=== PATIENT | female | born 1995 | race Caucasian/White ===

== ENCOUNTER → 2018-04-16 | Day surgery (SDC) | payer OTHER ==
[2018-04-14 13:19] VITALS: BMI 30.4
[2018-04-16 13:04] VITALS: BP 121/73; PULSE 72; RESP 18; TEMP 98
--- NOTE | 2018-04-21 16:52 | CDI ---
Outpatient Documentation Clarification Form Date: 04/21/18 CDS/Benefits Analyst Name: Maine Forrest Phone: If any questions, call Марина Menjivar Draftsperson at [phone] Patient Name: Rosana Golden Admit Date: 04/16/18 Discharge Date: 04/16/18 ATTENTION: The [facility] Coding Staff appreciate your assistance in clarifying documentation. Please respond to the clarification below the line at the bottom and electronically sign. The [facility] Coding staff will review the response and follow-up if needed. Please note: Queries are made part of the Legal Health Record. If you have any questions, please contact the Draftsperson. Dear Dr. Carias, An admitting diagnosis and a final diagnosis is required for coding and billing purposes. Please provide the diagnosis(es). Thank you for your kind consideration. MTDD
--- NOTE | 2018-04-24 07:30 | OP ---
OPERATIVE REPORT DATE OF PROCEDURE: 04/16/2018 This is a patient who is a 22-year-old white female scheduled for a high-resolution impedance esophageal manometry as a part of evaluation of GERD and intermittent dysphagia to solids. PROCEDURE PERFORMED: High-resolution impedance manometry. PREOPERATIVE DIAGNOSIS: GERD/dysphagia. PROCEDURE DESCRIPTION: After informed consent was obtained from the patient, she was brought to the endoscopy unit. The procedure was performed by endoscopy nurse Ruth Castaneda. The esophageal manometry catheter was passed from the external ostium, was gently advanced into the distal esophagus and stomach and using high-resolution manometry was performed, using liquid as well as viscus solution. The study was interpreted using [place] classification. Following episode of results: 1. Lower esophageal data: Medium (IRP, integral residual pressure) 8 mmHg, mean residual pressure 1 mmHg, EGJ phenotype type 3. 2. Esophageal body: Mean DCI 798 mmHg-S-cm. 3. Peristaltic contractions 90%. 4. Distal latency within normal limits. 5. Impedance study: Complete liquid transit 80%. 6. Complete viscus transit 80%. INTERPRETATION: The above manometry study shows normal lower esophageal sphincter - integral residual pressures and a motility involving the esophageal body is within normal limits. There is no evidence of esophageal dysmotility. MMODL / IJN: [id number] /
== END | disposition home or self-care (01) ==
LOC: ORWHC2ENDO 12:45
PROVIDERS: ATTEND Internal Medicine Gastroenterology
DX: K21.9 Gastro-esophageal reflux disease without esophagitis (principal)
CPT/HCPCS: 91010

== ENCOUNTER 2024-05-14 09:33 | Emergency (ER) | payer OTHER ==
[2024-05-14 09:39] VITALS: TEMP 98.4
--- NOTE | 2024-05-14 09:58 | ED ---
Chest Pain HPI - General Chief Complaint: Chest Pain Stated Complaint: Chest Pain Time Seen by Provider: 05/14/24 09:40 Source: patient, RN notes reviewed Mode of arrival: ambulatory Limitations: no limitations - History of Present Illness Initial Comments: This is a 28-year-old female who presents to the emergency department for chest pain and dizziness. Patient states that for the last several weeks she has had intermittent bouts of dizziness with palpitations and chest discomfort. However, it usually only lasts a couple of seconds to a few minutes at most. Since 7 AM yesterday states that her symptoms have been essentially constant. She has associated nausea and feels clammy. Pain is described as more of a pressure sensation in her chest, but states that it is a mild 3 out of 10 at this time. She occasionally has pain radiating into her back. Reports possible associated shortness of breath. Denies any personal cardiac history. She does have a family history of premature CAD in aunts and uncles. MD Complaint: chest pain - Related Data Home Medications Medication Instructions Recorded Confirmed busPIRone HCL [Buspar] 7.5 mg PO BID 05/14/24 05/14/24 Allergies Allergy/AdvReac Type Severity Reaction Status Date / Time dextromethorphan HBr Allergy Rash/Hives Verified 05/14/24 11:11 [From NyQuil] doxylamine succinate Allergy Rash/Hives Verified 05/14/24 11:11 [From NyQuil] ibuprofen Allergy Rash/Hives Verified 05/14/24 11:11 [From DayQuil Sinus Pressure/Pain] pseudoephedrine Allergy Rash/Hives Verified 05/14/24 11:11 [From DayQuil Sinus Pressure/Pain] pseudoephedrine HCl Allergy Rash/Hives Verified 05/14/24 11:11 [From NyQuil] codeine AdvReac Nausea Verified 05/14/24 11:11 Review of Systems ROS Statement: Those systems with pertinent positive or pertinent negative responses have been documented in the HPI. ROS Other: All systems not noted in ROS Statement are negative. Past Medical History Past Medical History: Asthma, GERD/Reflux Additional Past Medical History / Comment(s): migraines, hiatal hernia, enlarged thyroid, polycystic ovariian syndrome History of Any Multi-Drug Resistant Organisms: None Reported Past Surgical History: Hernia Repair, Orthopedic Surgery Additional Past Surgical History / Comment(s): arthroscopic rt knee, EGD x 2, colonoscopy, oral surgery Past Anesthesia/Blood Transfusion Reactions: Motion Sickness Past Psychological History: Anxiety Smoking Status: Vaper Past Alcohol Use History: Rare Past Drug Use History: Marijuana - Past Family History Mother Family Medical History: No Reported History General Exam Limitations: no limitations General appearance: alert, in no apparent distress Head exam: Present: atraumatic, normocephalic, normal inspection Respiratory exam: Present: normal lung sounds bilaterally. Absent: respiratory distress, wheezes, rales, rhonchi, stridor Cardiovascular Exam: Present: regular rate, normal rhythm, normal heart sounds. Absent: systolic murmur, diastolic murmur, rubs, gallop, clicks Neurological exam: Present: alert, oriented X3, CN II-XII intact Psychiatric exam: Present: normal affect, normal mood Skin exam: Present: warm, dry, intact, normal color. Absent: rash Course Vital Signs 05/14/24 05/14/24 09:36 11:30 Temperature 98.4 F Pulse Rate 64 67 Respiratory 20 16 Rate Blood Pressure 126/77 120/74 O2 Sat by Pulse 99 98 Oximetry Chest Pain MDM - MDM This is a 28 year old female who presents to the emergency department for chest pain. Was pt. sent in by a medical professional or institution? @ -No Did you speak to anyone other than the patient for history? @ -No Did you review nursing and triage notes? @ -Yes, and I agree, it is accurate with regards to the patient's symptoms. Were old charts reviewed? @ -No Differential Diagnosis? @ -Differential Chest Pain: Stable Angina, Unstable Angina, STEMI, NSTEMI Aortic Dissection, Pneumothorax, Musculoskeletal, Esophageal Spasm GERD, Cholecystitis, Pancreatitis, Zoster, this is not meant to be an all-inclusive list. EKG interpreted by me (3pts min.)? @ -EKG interpreted by me demonstrating the following: Sinus bradycardia. Ventricular rate 59 bpm, DE interval 167 ms, QRS duration 101 ms, QTc 403 ms. X-rays interpreted by me (1pt min.)? @ -Chest x-ray obtained, my interpretation identifies no localized conso lidations or infiltrates. CT interpreted by me (1pt min.)? @ -Not obtained U/S interpreted by me (1pt. min.)? @ -Not obtained What testing was considered but not performed? (CT, X-rays, U/S, labs)? Why? @ -None What meds were considered but not given? Why? @ -None Did you discuss the management of the patient with other professionals? @ -No Did you reconcile home meds? @ -No Was smoking cessation discussed for >3mins.? @ -I discussed smoking cessation for greater than 3 minutes. The risk of smoking were discussed with the patient including but not limited to risks of cancer, stroke, coronary artery disease and COPD. Also discussed with patient were multiple methods of quitting smoking. Lastly we discussed the financial cost of smoking. Was critical care preformed (if so, how long)? @ -No Were there social determinants of health that impacted care today? How? (Homelessness, low income, unemployed, alcoholism, drug addiction, transportation, low edu. Level, literacy, decrease access to med. care, [facility], rehab)? @ -No Was there de-escalation of care discussed even if they declined? (Discuss DNR or withdrawal of care, Hospice)? @ -No What co-morbidities impacted this encounter? (DM, HTN, Smoking, COPD, CAD, Cancer, CVA, Hep., AIDS, mental health diagnosis, sleep apnea, morbid obesity)? @ -Smoking Was patient admitted / discharged? @ -Discharged. Lab work unremarkable including a negative troponin and negative D-dimer. Chest x-ray reveals no acute process. Urinalysis negative for signs of infection. The patient has a low cardiac score of 1 based on risk factors and can be discharged home. She does have a follow-up appointment with her primary care provider later today. Advised following up as scheduled and discussing a Holter monitor to see if that would be appropriate or if any other testing is recommended. Patient discharged home in stable condition. Case discussed with ED attending Dr. Nelson. Return precautions reviewed in depth, the patient is instructed to return to the emergency department with any new, worsening, or concerning symptoms. Patient verbalized understanding. Undiagnosed new problem with uncertain prognosis? @ -None Drug Therapy requiring intensive monitoring for toxicity (Heparin, Nitro, Insulin, Cardizem)? @ -None Were any procedures done? @ -None Diagnosis/symptom? @ -Chest pain, dizziness Acute, or Chronic, or Acute on Chronic? @ -Acute Uncomplicated (without systemic symptoms) or Complicated (systemic symptoms)? @ -Uncomplicated Side effects of treatment? @ -None Exacerbation, Progression, or Severe Exacerbation] @ -Not applicable Poses a threat to life or bodily function? @ -Unlikely Disposition Clinical Impression: Chest pain, Dizziness, Nicotine dependence Disposition: HOME SELF-CARE Instructions (If sedation given, give patient instructions): Chest Pain (ED), Dizziness (ED), Noncardiac Chest Pain (ED) Additional Instructions: Return to the emergency department with any new, worsening, or concerning symptoms. Follow up with your primary care provider as scheduled today. Consider discussing a Holter monitor with your primary care provider to see if that would be appropriate. Is patient prescribed a controlled substance at d/c from ED?: No Referrals: Cathleen Reeder MD [Primary Care Provider] - 1-2 days Time of Disposition: 11:15
[2024-05-14] MEDS: SODIUM CHLORIDE 0.9% 1,000 ML IV STA (10:01)
[2024-05-14] MEDS: ONDANSETRON 4 MG/2 ML VIAL IVP STA (10:01)
[2024-05-14 10:11] LABS: Basophils # (A) 0.1 k/uL (0-0.2); Basophils % (A) 1 %; Eosinophils # (A) 0.2 k/uL (0-0.7); Eosinophils % (A) 3 %; HCT 42.8 % (34.0-46.0); Lymphocytes # (A) 2.4 k/uL (1.0-4.8); Lymphocytes % (A) 28 %; MCH 28.5 pg (25.0-35.0); MCHC 32.7 g/dL (31.0-37.0); MCV 87.3 fL (80.0-100.0); Mean Platelet Volume 7.3; Monocytes # (A) 0.5 k/uL (0-1.0); Monocytes % (A) 6 %; Neutrophils # (A) 5.1 k/uL (1.3-7.7); Neutrophils % (A) 60 %; Platelet Count 320 k/uL (150-450); RDW 12.7 % (11.5-15.5); WBC 8.4 k/uL (3.8-10.6)
[2024-05-14 10:18] LABS: Appearance,Urine Clear (Clear); Bacteria,Urine Rare /hpf; Bilirubin,Urine Negative (Negative); Blood,Urine Negative (Negative); Color,Urine Light Yellow; Glucose,Urine (UA) Negative (Negative); Ketones,Urine Negative (Negative); Leukocyte Esterase,Urine Small (Negative); Mucus,Urine Rare /hpf; Nitrite,Urine Negative (Negative); Protein,Urine Negative (Negative); Specific Gravity,Urine 1.018 (1.001-1.035); Squamous Epithelial Cell,Urine 8 /hpf (0-4); Urobilinogen,Urine <2.0 mg/dL (<2.0); WBC,Urine 2 /hpf (0-5)
--- NOTE | 2024-05-14 10:23 | XR ---
EXAMINATION TYPE: XR chest 2V DATE OF EXAM: 05/14/2024 10:09 AM COMPARISON: 12/08/2014 CLINICAL INDICATION: Female, 28 years old with history of Chest Pain, , TECHNIQUE: PA and lateral views FINDINGS: The cardiomediastinal silhouette, aorta, and pulmonary vasculature are within normal limits. Hazy den sity in the lower lungs related to overlying soft tissue. Lungs and pleural spaces are clear. Bilater al nipple markers. IMPRESSION: No acute cardiopulmonary process. [facility], , 05/14/2024 10:20 AM
[2024-05-14 10:27] LABS: Partial Thromboplastin Time 23.8 sec (22.0-30.0); Prothrombin Time 10.8 sec (10.0-12.5)
[2024-05-14 10:31] LABS: HCG,Qualitative Serum Not Detected
[2024-05-14 10:39] LABS: ALT 31 U/L (4-34); AST 31 U/L (14-36); African American GFR (CKD) >90 (>60 ml/min/1.73 sqM); Albumin 4.9 g/dL (3.5-5.0); Alkaline Phosphatase 49 U/L (38-126); Anion Gap 7 mmol/L; Blood Urea Nitrogen 10 mg/dL (7-17); Calcium 9.8 mg/dL (8.4-10.2); Carbon Dioxide 23 mmol/L (22-30); Chloride 109 mmol/L (98-107); Glucose 94 mg/dL (74-99); Lipase 98 U/L (23-300); Magnesium 1.8 mg/dL (1.6-2.3); Non-African American GFR(CKD) >90 (>60 ml/min/1.73 sqM); Potassium 4.1 mmol/L (3.5-5.1); Sodium 139 mmol/L (137-145); Total Bilirubin 0.6 mg/dL (0.2-1.3); Total Protein 7.9 g/dL (6.3-8.2)
[2024-05-14 11:31] VITALS: BP 120/74; PULSE 67; RESP 16
== END 2024-05-14 11:31 | disposition home or self-care (01) ==
LOC: EC 09:33
DX: R07.9 Chest pain, unspecified (principal); R42 Dizziness and giddiness; F17.200 Nicotine dependence, unspecified, uncomplicated; Z88.5 Allergy status to narcotic agent; Z88.8 Allergy status to other drugs, medicaments and biological substances; Z11.52 Encounter for screening for COVID-19
CPT/HCPCS: 36415; 93005; 85379; 80053; 83690; 83735; 84484; 85025; 85610; 85730; 81001; 84703; 87636; 71046; 99285; 96374; 96361; 99406; J2405